=== PATIENT | male | born 1990 | race Caucasian/White ===

== ENCOUNTER 2025-02-21 10:40 | Outpatient (CLI) | payer OTHER, SELFPAY | END 2025-02-21 10:41 | disposition home or self-care (01) | PROVIDERS: PCP Family Medicine; Visit Provider Family Medicine | DX: Z00.00 Encounter for general adult medical examination without abnormal findings (principal); R79.89 Other specified abnormal findings of blood chemistry; Z13.6 Encounter for screening for cardiovascular disorders; Z13.9 Encounter for screening, unspecified | CPT/HCPCS: 80048; 80061; 84460; 85025 ==

== ENCOUNTER 2025-04-12 09:52 | Outpatient (CLI) | payer OTHER, SELFPAY | END 2025-04-12 09:53 | disposition home or self-care (01) | LOC: NFLDREF 04-14 15:53 | PROVIDERS: PCP Family Medicine; Referring Provider Family Medicine; Visit Provider Family Medicine | DX: R79.89 Other specified abnormal findings of blood chemistry (principal); N52.9 Male erectile dysfunction, unspecified | CPT/HCPCS: 84403 ==